=== PATIENT | male | born 1960 | race Two or more races ===

== ENCOUNTER 2019-02-25 15:34 | Emergency (ER) | payer OTHER ==
[2019-02-25 15:40] VITALS: BP 153/80; PULSE 85; TEMP 98.3; BMI 28.8
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
[2019-02-25] MEDS ORDERED: NAPROXEN 500 MG TABLET (FP) PO ONE (16:23)
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
--- NOTE | 2019-02-26 12:07 | EKG ---
Test Reason : Blood Pressure : / mmHG Vent. Rate : 062 BPM Atrial Rate : 062 BPM P-R Int : 150 ms QRS Dur : 096 ms QT Int : 376 ms P-R-T Axes : 028 018 042 degrees QTc Int : 381 ms NORMAL SINUS RHYTHM NORMAL ECG NO PREVIOUS ECGS AVAILABLE Confirmed by David Gordon ([id number]) on 02/26/2019 12:07:12 PM Referred By: Confirmed By:David Gordon
== END 2019-02-25 16:35 | disposition home or self-care (01) ==
LOC: JERFT 15:34
DX: S13.4XXA Sprain of ligaments of cervical spine, initial encounter (principal); V43.52XA Car driver injured in collision with other type car in traffic accident, initial encounter; W22.12XA Striking against or struck by front passenger side automobile airbag, initial encounter; Y92.414 Local residential or business street as the place of occurrence of the external cause; Y93.89 Activity, other specified; Y99.8 Other external cause status
CPT/HCPCS: 93005; 93010; 99281-25